=== PATIENT | female | born 1950 | race Two or more races ===

== ENCOUNTER 2022-07-15 06:32 | Emergency (ER) | payer OTHER ==
[~2022-07-15] VITALS: Ht 152.4 cm; Wt 63.0 kg
[2022-07-15] MEDS ORDERED: LISINOPRIL20 MG PO (06:50)
[2022-07-15] MEDS ORDERED: CALAN SR120 MG PO (06:50)
[2022-07-15] MEDS ORDERED: CLARITIN10 M1 PO (06:51)
[2022-07-15] MEDS ORDERED: LIPITOR40 MG PO (06:51)
[2022-07-15] MEDS ORDERED: SINGULAIR4 M1 PO (06:51)
== END 2022-07-15 14:23 | disposition home or self-care (01) ==
LOC: ER 06:32
DX: N39.0 Urinary tract infection, site not specified (principal); Z97.8 Presence of other specified devices

== ENCOUNTER 2022-07-16 14:17 | Emergency (ER) | payer OTHER ==
[~2022-07-16] VITALS: Ht 152.4 cm; Wt 63.0 kg
[~2022-07-16 14:17] MED LIST: CALAN SR120 MG PO; CLARITIN10 M1 PO; LIPITOR40 MG PO; LISINOPRIL20 MG PO; SINGULAIR4 M1 PO
[2022-07-17] MEDS ORDERED: SURFAK240 M1 PO (00:45)
== END 2022-07-17 02:11 | disposition home or self-care (01) ==
LOC: ER 14:17
DX: K59.00 Constipation, unspecified (principal); I10 Essential (primary) hypertension; J45.909 Unspecified asthma, uncomplicated; M19.90 Unspecified osteoarthritis, unspecified site; G43.909 Migraine, unspecified, not intractable, without status migrainosus; J32.9 Chronic sinusitis, unspecified; E78.00 Pure hypercholesterolemia, unspecified; N20.0 Calculus of kidney

== ENCOUNTER 2023-03-26 06:03 | Day surgery (SDC) | payer OTHER ==
[~2023-03-26 06:03] MED LIST changes: +CALAN PO; +SURFAK240 M1 PO
[2023-03-26] MEDS ORDERED: TRAM1TAB98 PO (10:45)
[2023-03-26] MEDS ORDERED: MACROBID 100 M100 MG PO (10:45)
== END 2023-03-26 14:05 | disposition home or self-care (01) ==
LOC: CIR.AMB 06:03
PROVIDERS: ATTEND Obstetrics & Gynecology Gynecology
DX: N81.11 Cystocele, midline (principal); N81.12 Cystocele, lateral; N81.6 Rectocele; N81.83 Incompetence or weakening of rectovaginal tissue; Z20.822 Contact with and (suspected) exposure to COVID-19; I10 Essential (primary) hypertension